=== PATIENT | female | born 1970 | race Caucasian/White ===

== ENCOUNTER 2016-09-23 16:38 | Emergency (ER) | payer OTHER ==
[~2016-09-23] VITALS: Ht 162.6 cm; Wt 63.6 kg
[~2016-09-23 16:38] MED LIST: CHOL100045 PO; LEVO25TA5 PO; SUMA1TAB PO
[2016-09-23 17:03] VITALS: BP 109/66; PULSE 87; RESP 16; O2SAT 100
--- NOTE | 2016-09-23 17:46 | DRSVH ---
PROCEDURE: X-RAY LEFT FOOT COMPLETE, MINIMUM THREE VIEWS ([id number]) INDICATIONS: injury TECHNIQUE: 3 views of the foot were acquired. COMPARISON: [facility], CR, XR FOOT 3VW LT, 12/06/2014, 14:47. FINDINGS: Bones: No fractures or dislocations. No suspicious bony lesions. Soft tissues: No tibiotalar joint effusion. Achilles tendon appears normal. IMPRESSION: No visualized acute fracture or dislocation. However, if clinical concern and/or pain pe rsist, short interval imaging followup in 7-10 days is recommended, as occult injury cannot be defini tively excluded. Dictated by: Loren Walker M.D. on 09/23/2016 at 17:43 Approved by: Loren Walker M.D. on 09/23/2016 at 17:44
--- NOTE | 2016-09-23 17:46 | DRSVH ---
PROCEDURE: X-RAY LEFT ANKLE, MINIMUM THREE VIEWS ([id number]) INDICATIONS: injury TECHNIQUE: 3 views of the ankle were acquired. COMPARISON: [facility], CR, XR FOOT 3VW LT, 09/23/2016, 17:17. FINDINGS: Bones: No fractures or dislocations. Ankle mortise is normally aligned. No suspicious bony lesions . Soft tissues: No tibiotalar joint effusion. Achilles tendon appears normal. IMPRESSION: No visualized acute fracture or dislocation. However, if clinical concern and/or pain pe rsist, short interval imaging followup in 7-10 days is recommended, as occult injury cannot be defini tively excluded. Dictated by: Loren Walker M.D. on 09/23/2016 at 17:44 Approved by: Loren Walker M.D. on 09/23/2016 at 17:45
--- NOTE | 2016-09-23 18:15 | ED.REPORT ---
HPI-Extremity Problem Lower Date of Service Sep 23, 2016 ED Provider: Shreya Chong History of Present Illness: missed a step on a ladder this am, was walking fine and then took shoe off and put on flip flops. pain and swelling increased. Left ankle and foot pain. difficulty walking after removing shoe. 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 07/18 with walking 09/17. primary care is sosa Nursing Notes Stated Complaint: LEFT FOOT INJURY Chief Complaint: Extremity Trauma Nursing Notes Reviewed: Yes Allergies: Coded Allergies: carisoprodol (Verified Allergy, Intermediate, Aggitation, 11/03/13) Scheduled Cholecalciferol (Vitamin D3) (Vitamin D) 1,000 Unit Capsule 1,000 UNIT PO DAILY Levothyroxine (Levothyroxine) 25 Mcg Tablet 25 MCG PO DAILY Miscellaneous Medications Sumatriptan Succ/Naproxen Sod (Treximet 85-500 mg Tablet) 1 Each Tablet 1 EACH PO General Time Seen by MD: 18:14 Chief Complaint Ankle injury left, Foot injury left Hx Obtained From: Patient Onset Occurred: 5 - 8 hours ago Caused by: Accidental Past Medical History Past Medical History Denies: Asthma, Diabetes mellitus Past Surgical History Reports: Appendectomy, Tonsillectomy Smoking History Never Smoker Social History Alcohol Use: 1-3 per week Drug Use: Denies drug use Other Social History: Occupation lives with has [employer] in [facility] 09/23/2016 Ambulatory Status Independent Review of Systems Basic Review of Systems Eyes: Vision NL, No discharge : No dysuria, No frequency Psychiatric: Normal thought content Physical Exam Initial Vital Signs Vital Signs (First) Date Time Temp Pulse Resp B/P Pulse Ox O2 Delivery O2 Flow Rate FiO2 09/23/16 17:03 37 87 16 109/66 100 Room Air Initial VS: Reviewed, Vital signs normal General/Constitutional: Well-developed, Well-nourished Head / Eyes: Atraumatic, Normocephalic, PERRL ENT: Mucous membranes moist, Conjunctiva normal, No scleral icterus Neck: Supple, Non-tender, Full range of motion Respiratory: Breath sounds normal, Clear to auscultation, No respiratory distress Cardiovascular: Regular rate & rhythm, Heart sounds normal, Intact distal pulses Abdomen / GI: Soft, Non-tender, No guarding, No rebound, No distention Back: No CVA tenderness Lymphatic: No lymphadenopathy Upper Extremities: Vascular intact, Neuro intact, No swelling, No tenderness Skin: Warm, Dry, No cyanosis Neurologic: Alert, Oriented, Nonfocal Psychiatric: Mood/affect normal, Behavior normal, Normal thought content Lower Extremity / Pelvis / MS: Atraumatic, Inspection NL, Full range of motion left foot has swelling above shoe outline. mild swelling into foot. Patient has good range of motion. Cap refill less than 2 sec. sensation intact distally. no bruising noted General/Constitutional: Awake, Alert, No acute distress, Well appearing, Well developed, Well hydrated Respiratory / Chest: Atraumatic, Breath sounds NL, Breath sounds = bilat, No respiratory distress Cardiovascular: Heart rate NL, Regular rhythm, Heart sounds NL, No gallop Interpretation & Diagnostics X-Ray Interpretation Xray Interpretation: PROCEDURE: X-RAY LEFT ANKLE, MINIMUM THREE VIEWS ([id number]) INDICATIONS: injury TECHNIQUE: 3 views of the ankle were acquired. COMPARISON: [facility], , XR FOOT 3VW LT, 09/23/2016, 17:17. FINDINGS: Bones: No fractures or dislocations. Ankle mortise is normally aligned. No suspicious bony lesions. Soft tissues: No tibiotalar joint effusion. Achilles tendon appears normal. IMPRESSION: No visualized acute fracture or dislocation. However, if clinical concern and/or pain persist, short interval imaging followup in 7-10 days is recommended, as occult injury cannot be definitively excluded. Dictated by: Loren Walker M.D. on 09/23/2016 at 17:44 Approved by: Loren Walker M.D. on 09/23/2016 at 17:45 Re-Eval/Medical Decision Med Decision/Clinical Course 46 year old female presents for evualation of foot/ankle pain after missing a step on a ladder earlier today. Patient reports she was walking without difficulty until she took off her shoe. Then she noticed swelling and an increase in pain. X-rays are negative. No sign of compartment syndrome or bony damage. Discharge & Departure Impression: Primary Impression: Ankle sprain Encounter type: initial encounter Laterality: left Disposition: Home Patient Instructions: Ankle Sprain (GEN) Additional Instructions: The x-ray of the foot and the ankle are negative for any bony damage. Need to elevate the foot and apply ice, 15 minutes on and 15 minutes off. Use ibuprofen 600 mg up to 3 times a day as needed to decrease swelling and pain. Can use hydrocodone 1 at night as needed for severe unrelenting pain. Please follow with primary care if this does not show significant improvement in 7 to days. Referrals: Tricia Sosa MD (PCP) EDSupervising Provider for APC: Romeo Gibson MD copies to: Chica Sosa Sue ARNP Sep 23, 2016 18:14
== END 2016-09-23 18:35 | disposition home or self-care (01) ==
LOC: SED 16:38
DX: S93.492A Sprain of other ligament of left ankle, initial encounter (principal); X50.1XXA Overexertion from prolonged static or awkward postures, initial encounter; Y93.01 Activity, walking, marching and hiking; Y92.019 Unspecified place in single-family (private) house as the place of occurrence of the external cause; Y99.8 Other external cause status; Z88.8 Allergy status to other drugs, medicaments and biological substances